=== PATIENT | female | born 1955 | race Caucasian/White ===

== ENCOUNTER → 2022-09-27 15:57 | Outpatient (CLI) | payer MEDICARE, SELFPAY ==
--- NOTE | 2022-09-27 16:01 | DI.MRI.S_ITS ---
PROCEDURE: MR LUMBAR SPINE WO CON INDICATIONS: RADICULOPATHY TECHNIQUE: Noncontrast sagittal T1 spin echo and T2 fast echo, sagittal STIR, and T2 fast spin echo through the lumbar spine. In cases with scoliosis, additional coronal T2 fast spin echo may be performed. COMPARISON: None. FINDINGS: Image quality: Excellent. Alignment and Curvature: There is normal bony alignment. Bone Marrow: Modic type 1 changes at L3-4. No acute vertebral body compression fractures. Spinal Cord: Conus medullaris terminates at the L1-2 level. Visualized cord demonstrates normal signal and size. Paraspinous Soft Tissues: No paravertebral masses. T12-L1: Normal appearance. L1-L2: Disc desiccation and broad-based disc bulge. L2-L3: Disc desiccation and broad-based disc bulge, mild facet hypertrophy and arthrosis. L3-L4: Broad-based disc bulge, disc desiccation, ligamentum flavum hypertrophy and facet hypertrophy with facet arthrosis. This causes mild spinal canal narrowing and minimal left neural foraminal narrowing. L4-L5: Broad-based disc bulge, disc desiccation, ligamentum flavum hypertrophy and facet hypertrophy. Mild bilateral neural foraminal narrowing. L5-S1: Broad-based disc bulge, disc desiccation, questionable tiny annular fissure along the inferior margin. Mild facet hypertrophy. Mild facet arthrosis on the right and left. Moderate left and mild right neural foraminal narrowing. IMPRESSION: Multilevel degenerative disc disease and facet arthrosis, resulting in mostly mild neural foraminal narrowing or spinal canal narrowing. Of note, there is moderate left and mild right neural foraminal narrowing at L5-S1. Dictated by: Levon Arana M.D. on 09/27/2022 at 16:55 Approved by: Levon Arana M.D. on 09/27/2022 at 17:00
== END ==
PROVIDERS: PCP Registered Nurse; Referring Provider Orthopaedic Surgery; Visit Provider Orthopaedic Surgery
DX: M51.16 Intervertebral disc disorders with radiculopathy, lumbar region (principal); M51.17 Intervertebral disc disorders with radiculopathy, lumbosacral region; M47.26 Other spondylosis with radiculopathy, lumbar region; M47.27 Other spondylosis with radiculopathy, lumbosacral region; M48.061 Spinal stenosis, lumbar region without neurogenic claudication; M48.07 Spinal stenosis, lumbosacral region
CPT/HCPCS: 72148

== ENCOUNTER → 2022-11-18 09:55 | Outpatient (CLI) | payer MEDICARE, SELFPAY ==
[2022-11-18 11:04] LABS: Add Manual Diff / Slide Review NO; Basophils Absolute Auto 0 /uL (0-100); Basophils Percent Auto 0.6 % (0-2); Eosinophils Absolute Auto 100 /uL (0-450); Eosinophils Percent Auto 1.1 % (2-4); Hematocrit 36.3 % (36-46); Hemoglobin 13.2 g/dL (12.0-16.0); Lymphocytes Absolute Auto 1400 /uL (1100-4500); Lymphocytes Percent Auto 18.4 % (25-40); Mean Corpuscular HGB Conc 36.4 % (30-36); Mean Corpuscular Hemoglobin 30.7 PG (26-34); Mean Corpuscular Volume 84.5 fL (80-100); Monocytes Absolute Auto 800 /uL (0-900); Monocytes Percent Auto 10.1 % (3-14); Neutrophils Absolute Auto 5400 /uL (1500-7000); Neutrophils Percent Auto 69.8 % (50-75); Platelet Count 321 X10^3/uL (150-400); Red Cell Distribution Width 13.1 % (11.6-14.8); White Blood Cell Count 7.7 X10^3/uL (4.5-11.0)
[2022-11-18 11:24] LABS: BUN Creatinine Ratio 23.4 (6-22); Blood Urea Nitrogen 15 mg/dL (7-17); Calcium 9.3 mg/dL (8.4-10.2); Carbon Dioxide 29 mmol/L (22-32); Chloride 98 mmol/L (98-107); Estimated Glomerular Filt Rate > 60 mL/min (>60); Glucose 94 mg/dL (80-110); HEMOLYSIS < 15 (0-50); Potassium 4.2 mmol/L (3.4-5.1); Sodium 133 mmol/L (137-145)
[2022-11-18 12:03] LABS: Appearance Urine UA CLEAR; Bilirubin Urine UA NEGATIVE (NEGATIVE); Color Urine UA YELLOW; Glucose Urine UA NEGATIVE (Negative); Ketones Urine UA NEGATIVE (NEGATIVE); Leukocyte Esterase Urine UA NEGATIVE (NEGATIVE); Nitrite Urine UA NEGATIVE (Negative); Occult Blood Urine UA NEGATIVE (Negative); Protein Urine UA NEGATIVE (Negative); Specific Gravity Urine UA <=1.005 (1.000-1.035); Urobilinogen Urine UA 0.2 E.U./dL (0.2)
[2022-11-18 12:04] LABS: pH Urine UA 5.5 (4.5-8.0)
[2022-11-18 12:06] LABS: Bacteria Urine None Seen; Culture Indicated Urine Cult Not Indicated; RBC Urine None Seen (0-5/HPF); Squamous Epithelial Cell Urine None Seen (0-5/HPF); Urine Comments Microscopic Normal; WBC Urine None Seen (0-5/HPF)
[2022-11-19 03:12] LABS: x Labcorp Estim. Avg Glu (eAG) 94 mg/dL (.); x Labcorp Hemoglobin A1c 4.9 % (4.8-5.6)
== END ==
PROVIDERS: PCP Registered Nurse; Referring Provider Orthopaedic Surgery; Visit Provider Orthopaedic Surgery
DX: Z01.818 Encounter for other preprocedural examination (principal); R73.9 Hyperglycemia, unspecified; Z01.812 Encounter for preprocedural laboratory examination; N39.0 Urinary tract infection, site not specified
CPT/HCPCS: 36415; 80048; 81001; 83036; 85025; 93005

== ENCOUNTER 2023-01-07 08:22 | Day surgery (SDC) | payer MEDICARE, SELFPAY ==
[2022-12-31 08:37] VITALS: BMI 29.8
[2023-01-07] VITALS (15 sets, daily range): BP systolic 102–140; BP diastolic 47–79; PULSE 74–102; RESP 12–23; TEMP 36.2–37; O2SAT 94–99; BMI 29.8
[2023-01-07] MEDS: LACTATED RINGERS 1,000 ML 42 ML IV ×2 (09:33→12:43)
[2023-01-07] MEDS: VANCOMYCIN 1,000 MG/200 ML PIGGYBACK 200 MG IV (09:45)
--- NOTE | 2023-01-07 10:18 | PM.PREOP ---
Pre-operative Note Interval Note History & Physical reviewed/Exam performed by Physician: Yes Changes to H&P: No
[2023-01-07] MEDS: TRANEXAMIC ACID 1,000 MG VIAL 1000 MG INJ ×2 (11:12→12:43)
[2023-01-07] MEDS: CEFAZOLIN 2 GM/100 ML PREMIX 100 ML IV ×2 (11:20→19:40)
[2023-01-07] MEDS: BUPIVACAINE 0.25% (PF) 60 ML, EPINEPHrine 0.3 MG INJ (11:25)
--- NOTE | 2023-01-07 11:31 | SUR.OPER ---
Patient supine on padded [place] table, one arm on padded arm board at <90, other arm padded and secured with tape across patient's chest, both legs secured in padded traction boots and positioned per surgeon, padded post at patient's groin, pressure points checked and padded.
[2023-01-07] MEDS: BUPIVACAINE LIPOSOME 266 MG/20 ML VIAL INJ (11:43)
--- NOTE | 2023-01-07 12:00 | DI.RAD.S_ITS ---
PROCEDURE: XR HIP W PEL IF DONE LT 2V INDICATIONS: LEFT ANTERIOR HIP LEFT ANTERIOR TECHNIQUE: 2 view(s) of the hip acquired. COMPARISON: None. FINDINGS: Bones: Patient is status post left hip arthroplasty, with hardware components in expected positions. The hip joint appears congruent. The visualized bony structures appear intact. Soft tissues: Overlying postoperative changes are noted. No suspicious soft tissue densities. IMPRESSION: Expected postsurgical change for left hip arthroplasty. Dictated by: Radha Bella MD, PhD on 01/07/2023 at 13:16 Approved by: Radha Bella MD, PhD on 01/07/2023 at 13:16
[2023-01-07] MEDS: SODIUM CHLORIDE IRRIG SOLUTION 250 ML, POVIDONE-IODINE SPONGE STICKS 1 APPLIC IRR (12:45)
--- NOTE | 2023-01-07 12:50 | DI.RAD.S_ITS ---
PROCEDURE: XR HIP W PEL IF DONE LT 2V INDICATIONS: POST OP TOTAL LEFT HIP TECHNIQUE: 2 view(s) of the hip acquired. COMPARISON: [facility], [facility], XR HIP W PEL IF DONE LT 2V, 01/07/2023, 12:08. FINDINGS: Bones: Patient is status post left hip arthroplasty, with hardware components in expected positions. The hip joint appears congruent. The visualized bony structures appear intact. Soft tissues: Overlying postoperative changes are noted. No suspicious soft tissue densities. IMPRESSION: Expected postsurgical change for left hip arthroplasty. Dictated by: Radha Bella MD, PhD on 01/07/2023 at 13:49 Approved by: Radha Bella MD, PhD on 01/07/2023 at 13:49
[2023-01-07] MEDS: OXYCODONE IR 5 MG TABLET PO (13:41)
[2023-01-07] MEDS: CELECOXIB 200 MG CAPSULE PO (13:41)
[2023-01-07] MEDS: hydrOXYzine 50 MG/ML INJ 25 MG IM (13:47)
[2023-01-07] MEDS: ONDANSETRON 4 MG ODT PO (14:44)
[2023-01-07] MEDS: ACETAMINOPHEN 325 MG TABLET 650 MG PO ×2 (14:47→19:40)
[2023-01-07] MEDS: IBUPROFEN 400 MG TABLET PO ×3 (14:48→21:48)
[2023-01-07] MEDS: LACTATED RINGERS 1,000 ML 100 ML IV ×2 (14:50→18:19)
--- NOTE | 2023-01-07 16:35 | PM.OP.1 ---
Operative Date/Time/Diagnoses Date of procedure: 01/07/23 Time of procedure: 11:00 Pre-op diagnosis: Severe left hip OA Post-op diagnosis: same Procedure & Clinicians Procedure: Left total hip arthroplasty anterior approach Same procedure as scheduled: Yes Indications: The patient has had progressively worsening left hip pain with radiographic changes consistent with arthritis. Non-operative management has failed and the patient has requested total hip replacement. The risks, benefits and alternatives to surgery were discussed with the patient prior to proceeding. Risks discussed included, but were not limited to, failure to relieve pain, leg length discrepancy, dislocation, stiffness, infection, nerve damage, deep venous thrombosis, pulmonary embolism, stroke, coma, heart attack, permanent paralysis and , as well as the potential need for eventual revision of the prosthetic. Surgeon: Malika Lopez [employer] Supervisor: Daniel Carbone Anesthesia Type: General and Spinal Operative Notes Findings: Severe left hip osteoarthritis, adequate stability, soft but adequate bone Closure Type: primary Specimen(s): none sent Prosthetic devices, grafts, tissues, transplants, or devices: Lopez and nephew size 48 R3 cup, neutral poly liner, two 6.5 mm screws, size 1 standard offset polar stem with collar, 32 x +0 Oxinium head, Estimated Blood Loss (mL): 250 Blood products transfused: none Procedure in detail: The patient was brought to the operating room. Patient was carefully positioned in the supine position. Time-out was performed and antibiotics were given. Anesthesia was induced. She was positioned in the on the table in order to allow hyperextension of the hip. The left lower extremity was prepped and draped in a standard sterile fashion. An anterior left hip incision was made 1 fingerbreadth lateral to the anterior superior iliac spine and extended distally towards the greater trochanter. Dissection was carried out through skin and subcutaneous tissues. Superficial hemostasis was achieved. The fascia over the tensor fascia tasha was defined and incised with a knife. Two Allis clamps were used to grasp the fascia. Tensor fascia tasha was retracted laterally. A gelpi retractor was placed. Dissection was carried out down along the neck. The circumflex vessels were carefully identified and cauterized with the Aqua Mantis. A PA was used during the procedure and was essential for intraoperative retraction and adequate positioning of the patient. They were very helpful with establishing visualization for hemostasis. There was good visualization of the femoral neck. A Cobra was placed superior to the neck and the gluteus fibers were carefully stripped from that superior aspect of the capsule. A 2nd retractor was placed along the inferior aspect of the neck. The rectus insertion along the capsule was partially released. A 3rd retractor that was then gently placed over the rim of the acetabulum under the rectus. Capsule was carefully incised and released from the intertrochanteric line circumferentially superior to the mid sagittal line and inferiorly to the mid sagittal line until the lesser trochanter was palpable. A tag stitch was placed both in the superior and inferior limb of the capsular insertion. Along the acetabulum capsule was also released up to the mid sagittal 12:00 position. A portion of the labrum was resected. A saw was used to perform an osteotomy at the level of the intertrochanteric line and the junction of the superior femoral neck leaving approximately 1 finger breath of residual inferior neck above the lesser trochanter. A 2nd cut was made along the femoral neck at the base of the head and a napkin ring of neck was removed. Corkscrew was placed in the femoral head and the head was removed without difficulty. Retractors were then repositioned around the acetabulum. Residual labrum was resected and additional osteophytes were removed. A reamer that was 4 mm below the templated size was placed by hand in the acetabulum and it was reamed to centralize the acetabulum. It was then reamed up to 2 under the templated size and fluoroscopy was brought in to confirm the position of the reaming and depth of reaming. I reamed 1 under the anticipated size. A trial cup was placed and noted that it was appropriately sized and fluoroscopy confirmed position and depth. The component was open and inserted without difficulty fluoroscopic imaging was used to confirm that the cup had been adequately seated and was well positioned. It was further stabilized with 2 screws. She had fairly soft bone. Neutral poly liner was placed. The cup was tested and noted to be stable. Attention was then directed to the femur. The femur was gently hyperextended additional capsular release was performed as needed in order to allow adequate visualization of the proximal femur with elevation of the femur. Patient was placed in a hyperextended slightly adducted position with maximum external rotation. Box osteotome was used to check for any residual neck as well as sclerotic bone along the trochanter. [place] pepper was placed in the femur. Additional broaching was performed. Canal finder was used to determine the alignment of the canal and position. Size 0-1 broach was placed. The canal was then appropriately broached up to the templated size as long as there was adequate stability of the broach and serial advancement of the broach without excessive impingement. Specific attention was directed at avoiding varus attempting to direct the distal aspect of the broach more anteriorly and avoiding excessive anteversion. Trial reduction showed acceptable range of motion, good stability, no posterior impingement, latter day of leg length and appropriate lateral shuck. I also hyperflexed the hip and checked that there was no impingement anteriorly and there was good stability with flexion, adduction and internal rotation. Marcaine and Exparel were injected. The stem was placed without difficulty. Repeat trial reduction and x-ray showed acceptable overall position, length, and no evidence of the femoral fracture. Final head was placed. Wound was meticulously irrigated with normal saline. The hip was reduced and additional Exparel and Marcaine were injected. The capsule was closed with interrupted nonabsorbable sutures. The fascia of the tensor was closed with interrupted and running Vicryl. No drain was placed. Any tensor fascia tasha muscle that appeared to be contused or injured which was a minimal amount was carefully resected. Capsule around the tensor was injected with Exparel and Marcaine. The skin was closed with barbed stitches for the subcutaneous tissue and skin. We also used surgical glue. The wound was dressed sterilely. Brief Betadine soak was also used and was meticulously irrigated with normal saline. Patient was transferred to recovery room in satisfactory condition. Complications: none Post-operative Condition: stable Disposition: Acute Care Plan for aftercare: The patient will be maintained on a standard total hip replacement protocol with weight bearing as tolerated and anterior hip precautions. The patient will receive Aspirin and sequential compression devices for DVT prophylaxis. The patient will be discharged home when safe for the home environment.
--- NOTE | 2023-01-07 17:30 | PT.IIE ---
Current Diagnoses Unilateral primary osteoarthritis, left hip (01/07/23) Surgery Performed Operation Date: 01/07/23 10:45 Actual Procedures p Total Hip Arthroplasty/Anterior Approach(Left) - Malika Lopez MD Surgical History (Last Updated 12/31/22 @ 09:05 by Alfa Azar, SERENITY) History of 3 sections History of arthroscopic knee surgery History of eye surgery History of lumpectomy of left breast History of tubal ligation Hx of cholecystectomy Medical History (Last Updated 12/31/22 @ 08:41 by Alfa Azar RN) Depression DJD (degenerative joint disease) Hyperlipidemia Physical Therapy Inpatient Evaluation/Re-Eval M1 PT/OT-IP Prior Functional Status Start: 01/07/23 17:36 Freq: NEEDED Status: Active Protocol: Document 01/07/23 17:36 AB (Rec: 01/07/23 17:50 AB [id number]) Medical Review Prior Functional Status Medical History Reviewed Yes Communication Pt able to communicate needs. Mobility and Gait Pt ambulated without AD at [facility]. Activities of Daily Living and IADL's IND with all ADLs and IADLs, but was limited by hip pain Social History Household Members spouse Living Arrangements House Number of Floors (Floors) Two Floors Number of Stairs To Enter/Railing? 3 MARZENA with bilat hand rails Home Environment Standard Height Toilet,Walk in Shower Home Equipment Front Wheel Walker,Four Wheel Walker,Straight Cane,Raised Toilet Seat w/Armrests,Shower Seat with Backrest,Hand Held Shower,Leg Area Manager,Long Handled Shoe Horn,Drafter Civil,Sock Aid, Grab Bars In Shower Additional Social History Comment Pt reports her home is 2 levels and bedroom and full bath are upstairs. However she will be staying in guest house which is 1 level and has 3 MARZENA with bilat hand rails. is able to assist 24/7 if needed. M2 PT-IP Current Condition Start: 01/07/23 17:36 Freq: NEEDED Status: Active Protocol: Document 01/07/23 17:36 AB (Rec: 01/07/23 17:50 AB [id number]) Physical Therapy Current Condition Current Condition Evaluation Date 01/07/23 Treatment Diagnosis s/p left anterior YISEL Onset Date 01/07/23 M3 PT-IP Subjective Start: 01/07/23 17:36 Freq: NEEDED Status: Active Protocol: Document 01/07/23 17:36 AB (Rec: 01/07/23 17:50 AB [id number]) Subjective Physical Therapy Visit Type Type Initial Evaluation Visit Start Time 16:30 Visit Stop Time 17:30 Total Visit Minutes 60 Physical Therapy Visit Comments Patient Comments Pt presents semi supine in bed and is agreeable to PT eval this afternoon. She reports some numbness in buttocks but denies pain. Therapy Pain Assessment Pain Present Pain Present Denied Pain M4 PT-IP Mobility and Gait Start: 01/07/23 17:36 Freq: NEEDED Status: Active Protocol: Document 01/07/23 17:36 AB (Rec: 01/07/23 17:50 AB [id number]) PT-Bed Mobility Assessment Rolling Type of Rolling Bilateral Level of Assist Standby Assistance Supine to Sit Supine to Sit Standby Assistance Sit to Supine Sit to Supine Standby Assistance Scooting Scooting to Edge of Bed Standby Assistance PT-Transfer Assessment Sit to and From Stand Sit to and from Stand Standby Assistance,Use of Upper Extremities Equipment Transfer Assistive Device Gait Belt,Front Wheeled Walker Transfers Transfer Destination Bed,Chair Transfer Technique Stand Step Pivot Transfer Ability Level of Assist Standby Assistance,Use of Upper Extremities Comments Mobility Comments Pt is able to perform bed mobility with SBA, while maintaining hip precautions. She also performs STS and transfers with good mechanics, though verbal cues are required for sequencing and proper use of FWW. Pt demonstrates good stability in standing and has good carryover of education for subsequent transfers. After ambulation and stairs, pt is left sitting in bed with all needs met, tray in reach, call light in reach, and in room. RN was notified of findings. Gait Assessment Gait Gait Assistance Required: Standby Assistance Distance (Feet) 200 Assistive Devices Assistive Device Gait Belt,Front Wheeled Walker Gait Deviations General Gait Pattern Antalgic,Decreased Stride Length,Decreased Feet Clearance,Step-to Gait Factors Limiting Gait Function Factors Limiting Gait Function Decreased Strength,Limited Range of Motion Comments Gait Comments Gait deviations are consistent with surgical procedure. Pt denied pain with ambulation, but reports fatigue towards end of bout of ambulation. Pt also demonstrates good mechanics for turning to avoid pivoting, and step to gait to limit hip hyperextension. She ambulates cautiously with slow bre. Stair Climbing Assessment Evaluation Level of Assist On Stairs Standby Assistance Devices Stair Climbing Assistive Devices Left Railing,Right Railing Technique/Endurance Stair Climbing Direction Ascend and Descend Stair Climbing Technique Step to Step Number of Steps Climbed 3 Query Text: Stair Climbing Set # Repetitions (reps) 1 Comments Stair Climbing Comments Pt was educated on ascending with nonsurgical RLE, and descending with surgical LLE. PT-Balance Assessment Sitting Balance and Reactions Static Sitting Balance Ability Normal Dynamic Sitting Balance Ability Normal Standing Balance and Reactions Static Standing Balance Ability Normal Dynamic Standing Balance Ability Good Device Used FWW M5 PT-IP Objective Assessments Start: 01/07/23 17:36 Freq: NEEDED Status: Active Protocol: Document 01/07/23 17:36 AB (Rec: 01/07/23 17:50 AB [id number]) Orientation Orientation/Cognition Level of Alertness Alert Orientation Name,Age,Birthday,Month,Date, Year,Day of Week,Place, Situation Language Function Ability No Deficits Noted Safety Awareness Understands Safety Issues Memory Description No Deficits Noted Gross Range of Motion Upper Extremity ROM Assessment Within Functional Limits Lower Extremity ROM Assessment Left Impaired Strength Upper Extremity Strength Assessment Within Functional Limits Lower Extremity Strength Assessment Left Impaired M6 PT-IP Treatment Start: 01/07/23 17:36 Freq: NEEDED Status: Active Protocol: Document 01/07/23 17:36 AB (Rec: 01/07/23 17:50 AB [id number]) Physical Therapy Treatment Education Education Provided Precautions,Weight Bearing Status,Post-Op Packet,Safety Brace Education Patient,Caregiver M7 PT-IP Assessment and Plan Start: 01/07/23 17:36 Freq: NEEDED Status: Active Protocol: Document 01/07/23 17:36 AB (Rec: 01/07/23 17:50 AB [id number]) PT Summary Assessment and Plan Potential Rehabilitation Potential Excellent Status of Condition at Evaluation Stable Summary Impairments Pain,ROM,Strength,Balance,Bed Mobility,Transfers,Gait, Activity Tolerance Assessment Summary Rosio Paul is a 67 year old female patient who is s/p left anterior YISEL performed on 01/07/23. Today's PT evaluation revealed signs and symptoms consistent with this procedure including ROM deficits and weakness. Currently, the pt is able to perform all functional mobility with SBA, including transferring with FWW, ambulating 200ft with FWW and ascending/descending 3 steps with bilateral hand rails. She demonstrates good carryover and understanding of education provided throughout session. Based on her current level of function, the pt would benefit from skilled PT until she is discharged to improve to her highest level of function. PT currently recommends discharge to home with assistance and referral to outpatient PT to improve to her PLOF and increase post surgical outcomes. Goals Bed Mobility Goal Independent Transfer Goal Independent,Front Wheeled Walker Gait Goal Independent,Front Wheel Walker Gait Distance 300 Other Goals Pt to ambulate 300ft with independence and LRAD to demonstrate improving strength and tolerance to activity. Pt to ascend/descend 3 steps with bilateral hand rails independently to show improving LE strength. Days to Meet Goals 5 Frequency of Treatment Frequency Of Treatment Twice a Day Treatment Plan Physical Therapy Treatment Plan Bed Mobility Training,Transfer Training,Gait Training, Therapeutic Exercise,Balance Retraining,Post Op Education, Discharge Planning,Hot or Cold Pack,Neuromuscular Re-ed, Coordination Retraining,Manual Therapy Precautions Anterior Hip Precautions No Hip Extension,No Hip External Rotation Weight Bearing Status Weight Bearing Status Weight Bear as Tolerated Recommendations To Nursing Amount of Assist Needed Standby Assistance Discharge Recommendations PT Discharge Recommendations Home with Assistance, Outpatient PT Transportation Needs at Discharge Private Vehicle
--- NOTE | 2023-01-07 18:49 | PC.NURSE ---
Day shift: Pt admitted to floor from PACU at 1415. A&Ox4. VSS. Pt on room air. Patient rating pain 4/10, had 5mg PO oxycodone in PACU 1 hour prior. Gave patient APAP and ibuprofen with adequate relief. L hip dressing CDI, covered with aquacel dressing. Pt reports numbness on BLE when arrived to the floor, has since worn off. Pt reported mild pins and needles to L hand. MD Lopez at bedside and stated it was likely positional during surgery and should go away. CMS + BLEs. Pt OOB with FWW and gait belt + SBA. Pt OOB to BR, voiding in toilet. Tolerating general diet. LR @ 100mL/hr. Will continue to monitor.
[2023-01-07] MEDS: ASPIRIN EC 81 MG TABLET PO (20:12)
[2023-01-07] MEDS: DOCUSATE 100 MG CAPSULE PO (20:12)
--- NOTE | 2023-01-07 23:12 | PC.NURSE ---
Patient is alert and oriented. Breath sounds CTA with RA sat of 97%; denied sore throat but stated it is scratchy HRR. Denied nausea. BT present and states she believes she has passed some flatus since return from surgery. Is voiding on toilet and denies dysuria. Is able to move herself in bed and provided SBA when up to bathroom with walker. Aquacel dressing to left anterior hip is CDI. CMS intact bilaterally although does have some weakness and decreased ROM in left LE. Bilateral calf SCD's applied after back in bed (was sitting up in chair at shift change). Denied pain but has been using ice pack intermittently to left hip. Fall risk score is moderate but calls appropriately when wanting to get out of bed so alarm not in use at this time.
[2023-01-08] MEDS: ACETAMINOPHEN 325 MG TABLET 650 MG PO ×2 (01:50→08:51)
[2023-01-08] MEDS: IBUPROFEN 400 MG TABLET PO ×3 (01:50→11:02)
[2023-01-08 01:53] VITALS: BP 117/61; PULSE 78; RESP 15; TEMP 36.4; O2SAT 98
[2023-01-08] MEDS: CEFAZOLIN 2 GM/100 ML PREMIX 100 ML IV (03:22)
[2023-01-08 06:35] LABS: Hematocrit 29.9 % (36-46); Hemoglobin 10.6 g/dL (12.0-16.0)
--- NOTE | 2023-01-08 08:13 | PM.DS.1 ---
History of Present Illness History of Present Illness Date Patient Seen: 01/08/23 Time Patient Seen: 08:13 Chief complaint: Left YISEL *OPB* Narrative: Operative Date/Time/Diagnoses Date of procedure: 01/07/23 Time of procedure: 11:00 Pre-op diagnosis: Severe left hip OA Post-op diagnosis: same Procedure & Clinicians Procedure: Left total hip arthroplasty anterior approach Same procedure as scheduled: Yes Indications: The patient has had progressively worsening left hip pain with radiographic changes consistent with arthritis. Non-operative management has failed and the patient has requested total hip replacement. The risks, benefits and alternatives to surgery were discussed with the patient prior to proceeding. Risks discussed included, but were not limited to, failure to relieve pain, leg length discrepancy, dislocation, stiffness, infection, nerve damage, deep venous thrombosis, pulmonary embolism, stroke, coma, heart attack, permanent paralysis and , as well as the potential need for eventual revision of the prosthetic. Surgeon: Malika Lopez Tie In Machine Operator: Daniel Carbone Anesthesia Type: General and Spinal Operative Notes Findings: Severe left hip osteoarthritis, adequate stability, soft but adequate bone Closure Type: primary Specimen(s): none sent Prosthetic devices, grafts, tissues, transplants, or devices: Lopez and nephew size 48 R3 cup, neutral poly liner, two 6.5 mm screws, size 1 standard offset polar stem with collar, 32 x +0 Oxinium head, Estimated Blood Loss (mL): 250 Blood products transfused: none Discharge Providers Provider Discharge Date: 01/08/23 Primary care physician: NANCY Davis Consults: 12/20/22 12:37 Consult to Anesthesiology Routine Comment: Consulting Provider: Anesthesiologist Reason for consultation: Regional block for post operative pain control 01/07/23 10:19 Consult to Anesthesiology Routine Comment: Consulting Provider: Anesthesiologist Reason for consultation: Regional block for post operative pain control 01/07/23 14:17 Consult to Discharge Planning Routine Comment: Consult to Occupational Therapy Evaluate & Treat Comment: Physician Instructions: Evaluate and treat Consult to Physical Therapy Evaluate & Treat Comment: Physician Instructions: post op YISEL protocol Discharge provider: Hortencia Calabrese PA-C Summary Hospital Course Discharge Diagnosis: Severe left hip osteoarthritis, s/p left total hip arthroplasty Hospital Course: Ms Paul's hospital course was unremarkable. On the morning of POD# 1 she was feeling well and wanted to go home. She was eating and voiding without difficulty and said she 'passed PT with flying colors.' Her pain was well-controlled with oral medication. Exam Vital Signs (past 8 hours): - 01/08/23 01:53 Temperature 97.5 F L Pulse Rate 78 Respiratory Rate 15 Blood Pressure 117/61 Pulse Oximetry 98 Oxygen Flow Rate 0 Oxygen Delivery Method Room Air Oxygen Flow Rate 0 Narrative Exam Narrative: 5/5 strength in hip flexors, quadriceps, hamstrings, DF, PF, EHL on left. Sensation to light touch intact throughout LLE. Calf soft, compressible, nontender. Aquacel dressing CDI. Objective Labs 01/08/23 05:30 Labs: Laboratory Results - last 24 hr 01/08/23 05:30 Hgb 10.6 L Hct 29.9 L PFSH Medical History (Updated 12/31/22 @ 08:41 by Alfa Azar RN) DJD (degenerative joint disease) Hyperlipidemia Depression Surgical History (Updated 12/31/22 @ 09:05 by Alfa Azar RN) History of eye surgery History of arthroscopic knee surgery History of lumpectomy of left breast History of 3 sections History of tubal ligation Hx of cholecystectomy Social History household members: spouse Smoking Status: Never smoker alcohol intake: current Discharge Assessment & Plan Assessment and Plan Assessment: Severe left hip osteoarthritis, s/p left total hip arthroplasty Plan of Treatment: Discharge home, outpt PT, ASA 81mg BID for VTE prophylaxis, follow up in office in 2 weeks as scheduled. Pt has meds for discharge. Discharge Plan Discharge Plan Patient Disposition: Home Discharge orders & Medications Discharge Orders: Discharge (Order); Ordered 01/08/23 Ordered By: Hortencia Calabrese Prescriptions: Continued acyclovir 400 mg tablet 400 mg PO BID PRN (Reason: herpes) acetaminophen 500 mg Tablet 500 mg PO Q6H PRN (Reason: Pain (Scale Score 1-3)) Follow up/Referrals: Verónica Subramanian FNP-C [Primary Care Provider] - Malika Lopez MD [Physician] - As previously scheduled (Follow up with Dr Lopez on 01/22/2023 @ 2:[address] office in [place].) Diet/Activity/Treatments Diet: Diet as Tolerated Activity: Weightbearing as tolerated to left leg. Anterior hip precautions. Cold/Heat Therapy: Ice to hip as needed for pain. Skin/Wound/Dressing Care Report to your healthcare provider any signs of infection, such as:: chills, fever, night sweats, unusual drainage and unusual redness Dressing: May shower. Leave Aquacel dressing in place until follow up in office. No bathing or otherwise soaking incision. Call the office if the dressing becomes saturated inside. Visit Report/Discharge Packet Instructions: DI for Hip Replacement, DI for Prescription Opioid Use Stand Alone Forms: Patient Portal/API, Surgery Discharge Discharge Data Primary Care Provider: Verónica Subramanian Attending Provider: Malika Lopez
[2023-01-08] MEDS: SODIUM CHLORIDE 0.9% FLUSH 10 ML IV (08:47)
[2023-01-08] MEDS: ASPIRIN EC 81 MG TABLET PO (08:47)
[2023-01-08] MEDS: DOCUSATE 100 MG CAPSULE PO (08:51)
--- NOTE | 2023-01-08 09:03 | OT.IP.EVAL ---
Current Diagnoses Unilateral primary osteoarthritis, left hip (01/07/23) Surgery Performed Operation Date: 01/07/23 10:45 Actual Procedures p Total Hip Arthroplasty/Anterior Approach(Left) - Malika Lopez MD Past Medical History (Last Updated 12/31/22 @ 08:41 by Alfa Azar, SERENITY) Depression DJD (degenerative joint disease) Hyperlipidemia Surgical History (Last Updated 12/31/22 @ 09:05 by Alfa Azar RN) History of 3 sections History of arthroscopic knee surgery History of eye surgery History of lumpectomy of left breast History of tubal ligation Hx of cholecystectomy Occupational Therapy Inpatient Evaluation/Re-Eval M1 PT/OT-IP Prior Functional Status Start: 01/08/23 09:13 Freq: NEEDED Status: Active Protocol: Document 01/08/23 08:35 [facility] (Rec: 01/08/23 09:25 [facility] [id number]) Medical Review Prior Functional Status Medical History Reviewed Yes Communication Pt able to communicate needs. Mobility and Gait Pt ambulated without AD at [facility]. Activities of Daily Living and IADL's IND with all ADLs and IADLs, but was limited by hip pain Social History Household Members spouse Living Arrangements House Number of Floors (Floors) Two Floors Number of Stairs To Enter/Railing? 3 MARZENA with bilat hand rails Home Environment Standard Height Toilet,Walk in Shower Home Equipment Front Wheel Walker,Four Wheel Walker,Straight Cane,Raised Toilet Seat w/Armrests,Shower Seat with Backrest,Hand Held Shower,Leg Box Spring Frame Builder,Long Handled Shoe Horn,Motor Patrol Operator,Sock Aid, Grab Bars In Shower Additional Social History Comment Pt reports her home is 2 levels and bedroom and full bath are upstairs. However she will be staying in guest house which is 1 level and has 3 MARZENA with bilat hand rails. is able to assist 24/7 if needed. M2 OT-IP Current Condition Start: 01/08/23 09:13 Freq: Status: Active Protocol: Document 01/08/23 08:35 [facility] (Rec: 01/08/23 09:25 [facility] [id number]) Occupational Therapy Current Condition Current Condition Evaluation Date 01/08/23 Treatment Diagnosis S/P L YISEL anterior approach Diagnosis Onset Date 01/07/23 Post Operative Precautions Anterior Hip Precautions No Hip Extension,No Hip External Rotation M3 OT- IP Subjective and Pain Start: 01/08/23 09:13 Freq: Status: Active Protocol: Document 01/08/23 08:35 [facility] (Rec: 01/08/23 09:25 [facility] [id number]) OT- Subjective Occupational Therapy Visit Type Type Initial Evaluation Visit Start Time 08:35 Visit Stop Time 09:03 Total Visit Minutes 28 Occupational Therapy Visit Comments Patient Comments Pt in the bathroom and agreed to get dressed. Patient/Caregiver Goals To go home. OT Pain Assessment Pain When Pain Assessed During Mobility Pain Present Pain Present Pain Reported Location Left Hip Intensity 1 Scale Used Numeric (0 - 10) M4 OT- IP ADL's Start: 01/08/23 09:13 Freq: Status: Active Protocol: Document 01/08/23 08:35 [facility] (Rec: 01/08/23 09:25 [facility] [id number]) OT [id number] General Evaluation Self-Feeding Ability Independent OT ADL-Grooming General Evaluation Grooming Ability Independent OT ADL-Oral Care General Eval Oral Care Ability Independent Comments Oral Care Comments While standing with FWW in front of the sink. OT ADL-Dressing General Eval Upper Body Dressing Ability Independent Lower Body Dressing Ability Standby Assistance,Minimal Assistance Comments OT Dressing Comments Pt instructed to sit for LB dressing needs and to be sure not to externally rotate her LLE for dressing needs. Educated best to dress the LLE first and take out last. Pt able to use the automobile sales consultant to assist with dressing needs. Pt states her can assist her at home. Pt will need assist with her left sock at this time. OT ADL-Toileting General Evaluation Toileting Ability Independent OT ADL-Bathing Comments OT Bathing Comments Pt states to shower at home. M5 OT- IP IADL's Start: 01/08/23 09:13 Freq: Status: Active Protocol: Document 01/08/23 08:35 [facility] (Rec: 01/08/23 09:25 [facility] [id number]) OT-Instrumental Activities of Daily Living Home Safety Awareness Awareness of Need for Assistance at Home Good Awareness Ability to Problem Solve Emergency Able to Problem Solve Situations Home Safety Comments Pt's to assist. Medication Management Medication Management No Deficits Identified Money Management Money Management No Deficits Identified Meal Preparation Meal Preparation Comments Pt's husabnd to assist. Concrete Mixer Operator Helper Concrete Mixer Operator Helper Comments Pt's to assist. M6 OT- IP Functional Cognition Start: 01/08/23 09:13 Freq: Status: Active Protocol: Document 01/08/23 08:35 [facility] (Rec: 01/08/23 09:25 [facility] [id number]) Cognitive Factors Limiting Selfcare Function Cognitive Ability Level of Alertness Alert Patient Orientation Name,Age,Birthday,Month,Date, Year,Day of Week,Place, Situation Attention Span Ability Capable of Focused Attention, Capable of Sustained Attention Ability to Follow Commands Able to Follow Multi-Step Commands Memory Description No Deficits Noted Safety Awareness Decreased Ability to Apply Precautions Problem Solving Ability No deficits Noted Cognitive Comments Cognitive Assessment Comments Pt needing reminders to take smaller steps in order to best follow her hip precautions. Also able to educate regarding car transfers in which leg goes back first as pt will have a step to get into the truck. OT- Vision and Hearing OT- Hearing Assessment OT- Hearing Assessment WFL OT- Vision Assessment Visual Acuity WFL M7 OT- IP Mobility and Balance Start: 01/08/23 09:13 Freq: Status: Active Protocol: Document 01/08/23 08:35 [facility] (Rec: 01/08/23 09:25 [facility] [id number]) OT-Transfer Assessment Sit to and From Stand Sit to and from Stand Independent Transfers Transfer Ability Independent Technique Transfer Destination Chair,Toilet Transfer Technique Stand Step Pivot Devices Transfer Assistive Devices None,Front Wheeled Walker Comments Mobility Comments Pt independent in the room mainly just needing reminders to follow her hip precautions of taking smaller steps. OT- Balance Assessment Sitting Balance and Reactions Static Sitting Balance Ability Normal Dynamic Sitting Balance Ability Normal Standing Balance and Reactions Static Standing Balance Ability Normal Dynamic Standing Balance Ability Good M8 OT- IP Objective Assessments Start: 01/08/23 09:13 Freq: Status: Active Protocol: Document 01/08/23 08:35 [facility] (Rec: 01/08/23 09:25 [facility] [id number]) OT Gross Range of Motion Upper Extremity Range of Motion Assessment Within Functional Limits OT Strength Upper Extremity Strength Assessment Within Functional Limits OT-Muscle Tone Assessment Muscle Tone WNL Yes M9 OT- IP Assessment and Plan Start: 01/08/23 09:13 Freq: Status: Active Protocol: Document 01/08/23 08:35 [facility] (Rec: 01/08/23 09:25 [facility] [id number]) OT Summary Assessment and Plan Potential Rehabilitation Potential Excellent Analytic Complexity at Evaluation Low Summary OT Impairments Pain,Functional Mobility, Dressing,Bathing Progress Towards Goals Progressing Toward Goals Assessment Summary Pt low complexity and main barriers is needing reminders to slow down and take smaller steps. Pt has a supportive at home to assist with her needs. Pt to go home with assist and outpt PT. Goals Dressing Goal Independent Bathing Goal Independent Days to Meet Goals 2 Frequency of Treatment Frequency Of Treatment Once a Day Treatment Plan OT Treatment Plan ADL Training,Functional Mobility,Patient/Family Education,Discharge Planning Discharge Recommendations OT Discharge Recommendations Home with Assistance, Outpatient PT Transportation Needs at Discharge Private Vehicle
--- NOTE | 2023-01-08 09:40 | PT.IPTN ---
Current Diagnoses Unilateral primary osteoarthritis, left hip (01/07/23) Surgery Performed Operation Date: 01/07/23 10:45 Actual Procedures p Total Hip Arthroplasty/Anterior Approach(Left) - Malika Lopez MD Physical Therapy Treatment Note M2 PT-IP Current Condition Start: 01/07/23 17:36 Freq: NEEDED Status: Discharge Protocol: Document 01/07/23 17:36 AB (Rec: 01/07/23 17:50 AB [id number]) Physical Therapy Current Condition Current Condition Evaluation Date 01/07/23 Treatment Diagnosis s/p left anterior YISEL Onset Date 01/07/23 M3 PT-IP Subjective Start: 01/07/23 17:36 Freq: NEEDED Status: Discharge Protocol: Document 01/08/23 09:40 AB(2) (Rec: 01/08/23 14:38 AB(2) [id number]) Subjective Physical Therapy Visit Type Type Treatment Note Visit Start Time 09:40 Visit Stop Time 10:20 Total Visit Minutes 40 Number of ULTRASONIC TESTER Visits 0 Physical Therapy Visit Comments Patient Comments agreeable to do PT Therapy Pain Assessment Pain When Pain Assessed At Rest Pain Present Pain Present Pain Reported Location Left Hip Intensity 1 M4 PT-IP Mobility and Gait Start: 01/07/23 17:36 Freq: NEEDED Status: Discharge Protocol: Document 01/08/23 09:40 AB(2) (Rec: 01/08/23 14:38 AB(2) [id number]) PT-Bed Mobility Assessment Supine to Sit Supine to Sit Standby Assistance Sit to Supine Sit to Supine Standby Assistance PT-Transfer Assessment Equipment Transfer Assistive Device Gait Belt,Front Wheeled Walker Orthotic/Prosthetic Devices or Brace: No Transfers Transfer Destination Chair Transfer Technique ambulated Transfer Ability Level of Assist Standby Assistance Comments Mobility Comments pt sitting on the chair and agreeable to do PT. reviewed hip precautions and pt able to recall 1/2. educated pt regarding hip precautions again. completed sit to stand and step transfer to bed using FWW SBA. demonstrated bed mobility sit<>supine SBA. pt agreed to do stairs. completed sit to stand SBA and ambulated towards the stairs using FWW SBA. occasional cues provided for hip precautions. pt completed up/down steps using B rails SBA. ambulated back to her room using fWW and sat back on chair. positioned on the chair. call light and table placed within reach. pt stated that no caregiver training is needed and can instruct spouse for assistance . Gait Assessment Gait Gait Assistance Required: Standby Assistance Distance (Feet) 150 Able to Maintain Weight Bearing Status Yes During Gait Assistive Devices Assistive Device Gait Belt,Front Wheeled Walker Orthotic/Prosthetic Devices or Brace: No Factors Limiting Gait Function Factors Limiting Gait Function Decreased Activity Tolerance, Decreased Strength,Pain,Poor Balance,Poor Safety Awareness Stair Climbing Assessment Evaluation Level of Assist On Stairs Standby Assistance Devices Stair Climbing Assistive Devices Left Railing,Right Railing Technique/Endurance Stair Climbing Direction Ascend and Descend Stair Climbing Technique Step to Step Number of Steps Climbed 3 Stair Climbing Set # Repetitions (reps) 1 M5 PT-IP Objective Assessments Start: 01/07/23 17:36 Freq: NEEDED Status: Discharge Protocol: Document 01/07/23 17:36 AB (Rec: 01/07/23 17:50 AB [id number]) Orientation Orientation/Cognition Level of Alertness Alert Orientation Name,Age,Birthday,Month,Date, Year,Day of Week,Place, Situation Language Function Ability No Deficits Noted Safety Awareness Understands Safety Issues Memory Description No Deficits Noted Gross Range of Motion Upper Extremity ROM Assessment Within Functional Limits Lower Extremity ROM Assessment Left Impaired Strength Upper Extremity Strength Assessment Within Functional Limits Lower Extremity Strength Assessment Left Impaired M6 PT-IP Treatment Start: 01/07/23 17:36 Freq: NEEDED Status: Discharge Protocol: Document 01/08/23 09:40 AB(2) (Rec: 01/08/23 14:38 AB(2) [id number]) Physical Therapy Treatment Education Education Provided Precautions,Weight Bearing Status,Safety M7 PT-IP Assessment and Plan Start: 01/07/23 17:36 Freq: NEEDED Status: Discharge Protocol: Document 01/08/23 09:40 AB(2) (Rec: 01/08/23 14:38 AB(2) [id number]) PT Summary Assessment and Plan Potential Rehabilitation Potential Good Summary Impairments Pain,ROM,Strength,Balance, Coordination,Sensation,Tone, Cognition,Bed Mobility, Transfers,Gait,Activity Tolerance Assessment Summary pt requiring SBA with mobility using FWW and plans to go home with spouse to assist. pt has outpt PT set up. pt may go home when medically stable. Goals Bed Mobility Goal Independent Transfer Goal Independent,Front Wheeled Walker Gait Goal Independent,Front Wheel Walker Gait Distance 300 Other Goals Pt to ambulate 300ft with independence and LRAD to demonstrate improving strength and tolerance to activity. Pt to ascend/descend 3 steps with bilateral hand rails independently to show improving LE strength. Days to Meet Goals 5 Frequency of Treatment Frequency Of Treatment Twice a Day Treatment Plan Physical Therapy Treatment Plan Bed Mobility Training,Transfer Training,Gait Training, Therapeutic Exercise,Balance Retraining,Post Op Education, Discharge Planning,Hot or Cold Pack,Neuromuscular Re-ed, Coordination Retraining,Manual Therapy Precautions Anterior Hip Precautions No Hip Extension,No Hip External Rotation Weight Bearing Status Weight Bearing Status Weight Bear as Tolerated Allowed Weight Bearing Amount (enter % LLE WBAT or #) (%) Recommendations To Nursing Amount of Assist Needed Standby Assistance Discharge Recommendations PT Discharge Recommendations Home with Assistance, Outpatient PT Transportation Needs at Discharge Private Vehicle
[2023-01-08 10:18] VITALS: BP 134/70; PULSE 88; RESP 16; TEMP 36.9; O2SAT 94
--- NOTE | 2023-01-08 11:24 | CM.DANOTE ---
Initial DCP Assessment Note Pt is a 67 yo female, resident of [facility]. Patient is now POD#1 from left YISEL by Dr Lopez PCP: Verónica Subramanian Payer: RENNY/JACLYN Reviewed chart, pt discussed in multidisciplinary rounds this morning. Therapy has cleared pt for return home w/family to assist and pt has planned for home, DC order from Ortho has already been initiated this morning. No barriers identified at this time to patient's safe discharge home w/family to assist; close outpatient f/u recommended. CM team will plan to follow closely in case any DC needs or concerns arise. PRAMOD Acevedo Discharge Planning/Care Management CM Discharge Assessment Start: 01/08/23 11:20 Freq: Status: Active Protocol: Document 01/08/23 11:20 [facility] (Rec: 01/08/23 11:24 [facility] [id number]) Discharge Planning Assessment Assigned De Icer Installer PRAMOD Kimball DPOA/Assigned Designee Name Miguel Paul, spouse Contact Information [phone] Advance Directives? Yes Advance Directives on File Yes History Provided By Patient Prior Living Arrangements House Household Members spouse Type of transporation used prior to Drives own vehicle admit Independent with ADL's Yes Is patient alert and oriented? Yes Needs Assistance With Home Chores / Shopping Comment Patient's activity has been limited by hip pain Patient/Family Preference OP PT Therapy Barriers to Discharge No Discharge Plan Home Transportation Arrangement Spouse Referrals Initiated None needed Whiteboard Updated in Patient Room with Yes name and ext. # of De Icer Installer Comment DOD 01/08/23
== END 2023-01-08 12:05 | disposition home or self-care (01) ==
LOC: OR 08:28 → AC 08:28
PROVIDERS: PCP Registered Nurse; Referring Provider Orthopaedic Surgery; Visit Provider Orthopaedic Surgery
PROC: (CPT 27130; principal; 2023-01-07 10:45)
DX: M16.12 Unilateral primary osteoarthritis, left hip (principal)
CPT/HCPCS: 27130; 36415; 73502; 85014; 85018; 97116; 97161; 97165; 97530; 97535; C1776; C9290; J0171; J0690; J1100; J2405; J2704; J3010; J3410

== ENCOUNTER → 2023-07-23 15:47 | Outpatient (CLI) | payer MEDICARE, SELFPAY ==
[2023-01-07 14:05] VITALS: BMI 29.8
[2023-07-23 16:35] LABS: Appearance Urine UA CLEAR; Bilirubin Urine UA NEGATIVE (NEGATIVE); Color Urine UA YELLOW; Glucose Urine UA NEGATIVE (Negative); Ketones Urine UA NEGATIVE (NEGATIVE); Leukocyte Esterase Urine UA NEGATIVE (NEGATIVE); Nitrite Urine UA NEGATIVE (Negative); Occult Blood Urine UA NEGATIVE (Negative); Protein Urine UA NEGATIVE (Negative); Urobilinogen Urine UA 0.2 E.U./dL (0.2)
[2023-07-23 16:36] LABS: pH Urine UA 5.5 (4.5-8.0)
[2023-07-23 16:39] LABS: Add Manual Diff / Slide Review NO; Basophils Absolute Auto 100 /uL (0-100); Basophils Percent Auto 0.8 % (0-2); Eosinophils Absolute Auto 200 /uL (0-450); Eosinophils Percent Auto 2.8 % (2-4); Hematocrit 36.6 % (36-46); Hemoglobin 12.6 g/dL (12.0-16.0); Lymphocytes Absolute Auto 1500 /uL (1100-4500); Lymphocytes Percent Auto 23.8 % (25-40); Mean Corpuscular HGB Conc 34.4 % (30-36); Mean Corpuscular Hemoglobin 28.1 PG (26-34); Mean Corpuscular Volume 81.7 fL (80-100); Monocytes Absolute Auto 800 /uL (0-900); Monocytes Percent Auto 12.3 % (3-14); Neutrophils Absolute Auto 3800 /uL (1500-7000); Neutrophils Percent Auto 60.3 % (50-75); Platelet Count 321 X10^3/uL (150-400); Red Blood Cell Count 4.48 X10^6/uL (4.0-5.2); Red Cell Distribution Width 15.4 % (11.6-14.8); White Blood Cell Count 6.3 X10^3/uL (4.5-11.0)
[2023-07-23 16:50] LABS: Bacteria Urine None Seen; Culture Indicated Urine Cult Not Indicated; RBC Urine None Seen (0-5/HPF); Squamous Epithelial Cell Urine 0-1 /HPF (0-5/HPF); Urine Volume 10mL (spun); WBC Urine None Seen (0-5/HPF)
[2023-07-23 16:53] LABS: BUN Creatinine Ratio 22.5 (6-22); Blood Urea Nitrogen 18 mg/dL (7-17); Carbon Dioxide 28 mmol/L (22-32); Chloride 102 mmol/L (98-107); Estimated Glomerular Filt Rate > 60 mL/min (>60); Glucose 97 mg/dL (80-110); HEMOLYSIS < 15 (0-50); Potassium 4.1 mmol/L (3.4-5.1); Sodium 135 mmol/L (137-145)
[2023-07-23 17:36] LABS: Hemoglobin A1C% w Est Avg Glu 4.9 % (4.0-6.0)
== END ==
PROVIDERS: PCP Registered Nurse; Referring Provider Orthopaedic Surgery; Visit Provider Orthopaedic Surgery
DX: Z01.818 Encounter for other preprocedural examination (principal); R73.9 Hyperglycemia, unspecified; Z01.812 Encounter for preprocedural laboratory examination; N39.0 Urinary tract infection, site not specified
CPT/HCPCS: 80048; 81001; 83036; 85025; 93005

== ENCOUNTER 2023-09-09 11:50 | Day surgery (SDC) | payer MEDICARE, SELFPAY ==
[2023-01-07 14:05] VITALS: BMI 29.8
[2023-09-08 11:58] VITALS: BMI 30.8
[2023-09-09] VITALS (13 sets, daily range): BP systolic 116–146; BP diastolic 51–80; PULSE 69–86; RESP 12–20; TEMP 36.2–36.6; O2SAT 92–100; BMI 31.1
--- NOTE | 2023-09-09 06:00 | DI.RAD.S_ITS ---
PROCEDURE: XR KNEE RT 1TO2V INDICATIONS: tka TECHNIQUE: 2 view(s) of the knee acquired. COMPARISON: None. FINDINGS: Bones: Patient is status post knee joint arthroplasty. Hardware components are in expected positions. Visualized bony structures are intact. Soft tissues: Overlying postoperative changes are noted. IMPRESSION: Expected post-operative appearance of a knee arthroplasty. Approved by: Renée Pablo M.D.,Ph.D. on 09/09/2023 at 18:27
[2023-09-09] MEDS: LACTATED RINGERS 1,000 ML 42 ML IV ×2 (12:10→16:11)
[2023-09-09] MEDS: CELECOXIB 200 MG CAPSULE 400 MG PO (12:55)
[2023-09-09] MEDS: VANCOMYCIN 1,000 MG/200 ML PIGGYBACK 200 MG IV (14:08)
--- NOTE | 2023-09-09 14:41 | P.OP_ITS ---
Operative Date/Time/Diagnoses Date of procedure: 09/09/23 Time of procedure: 15:00 Pre-op diagnosis: Severe right knee OA history of tibial plateau fracture Post-op diagnosis: same Procedure & Clinicians Procedure: Right total knee arthroplasty Same procedure as scheduled: Yes Indications: The patient has had progressively worsening right knee pain with radiographic changes consistent with arthritis. Non-operative management has failed and the patient has requested total knee replacement. The risks, benefits and alternatives to surgery were discussed with the patient prior to proceeding. Risks discussed included, but were not limited to, failure to relieve pain, stiffness, infection, nerve damage, deep venous thrombosis, pulmonary embolism, stroke, coma, heart attack, permanent paralysis and , as well as the potential need for eventual revision of the prosthetic. Surgeon: Malika Lopez Car Sales Associate: Daniel Carbone Anesthesia Type: General Operative Notes Findings: Severe right knee OA, adequate bone, adequate stability, severe synovitis throughout the knee most consistent with an inflammatory arthritis Closure Type: primary Specimen(s): none sent Prosthetic devices, grafts, tissues, transplants, or devices: John in the neph journey BCS 2 size 5 femur, size 4 tibia, size 12 x 100 Meeta stem, +9 poly, 32 x 7-1/2 mm patella Estimated Blood Loss (mL): 250 Blood products transfused: none Tourniquet time (min): 97 Procedure in detail: The patient was seen in the pre-operative area, where the patient identified the right knee as the operative site and this was marked with my initials. The patient received pre-operative antibiotics, and was taken to the operating room and placed on the operative table in the supine position. After satisfactory anesthesia, a multimedia authoring specialist out was performed. The right leg was encircled with a tourniquet about the proximal thigh, and the leg was prepared from the toes to the tourniquet with ChloroPrep in the usual fashion and draped through sterile drapes. The leg was elevated and exsanguinated with Eschmark bandage and the tourniquet inflated to [250] mmHg pressure. A PA was used during the procedure and was essential for intraoperative retraction and safe implantation of the components. The knee was approached through an approximately 18 cm incision centered over the patella and carried into the knee through a medial parapatellar arthrotomy. There was severe synovitis throughout the knee and it looked more like an inflammatory arthritis. Fairly extensive synovectomy was done in the suprapatellar pouch and both lateral gutters. Portion of the medial and lateral meniscus was resected. Soft tissue was carefully mobilized around the patella the patella was measured with a caliper. Bone was resected from the patella and the patellar height was reconstituted with up an appropriate sized patellar component. A cover was then placed on the patella. A small amount of additional medial and lateral meniscus was resected. CORI pins were placed in the femur and the tibial guide was placed and pinned to the tibia for navigation. A plan was carefully taken and further developed. The knee was placed through a range of motion including stressed and non stressed range of motion. It was balanced to about 1 mm of gap throughout range of motion and to neutral alignment. The distal femoral cut was made with a robotic assisted bur.. It looked like an appropriate distal femoral cut and the cut was made without difficulty. The rotation was assessed and the appropriate size femoral guide was placed on the distal femur and finishing cuts were made. There was no evidence of notching. The anterior, posterior and chamfer cuts were then made. The posterior osteophytes and soft tissues were then removed. The posterior capsule was injected with part of a mixture of 60 ml 0.25% Marcaine mixed with 20 ml Exparel for post operative pain control. The remainder of this mixture was injected into the capsule and subcutaneous tissues during cement curing. The tibia was carefully navigated in order to optimize the tibial cut. The guide was adjusted and pinned. The tibial cut appeared appropriate. The ro tation was assessed. The patient was placed in extension residual medial and lateral meniscus as well as any residual bone was carefully resected. [No] additional tibia was resected. Hemostasis was achieved especially posteriorly. Additional local was injected into the posterior capsule. The extension gap was assessed and it appeared appropriate. The femoral component was trial was placed and the notch was finished. Trial tibial and femoral components were then placed and the knee placed through a range of motion. Range of motion was [0- 130], with good stability throughout the range. The trials were then removed, and the tibia was finished. Patient had a history of a prior tibial plateau fracture there was some abnormality in the pattie tibia and it was opted to use a stem extension in order to further supplement tibial fixation. It was reamed up to an 11 Reamer through the guide and then free hand reamed with a 12 Reamer implanting a 12 mm stem. The bone was prepared with pulsatile lavage, and dried with a sponge. Cement was applied and the final prosthetics placed. Excess cement was removed during and after cement curing. A brief Betadine soak was performed. After confirming there was no extruded cement posteriorly, the final tibial insert was placed. The knee was copiously irrigated and the tourniquet deflated. Hemostasis was obtained with the Bovie cautery. The capsule was closed with interrupted # 1 Vicryl. The subcutaneous layer was closed with barbed sutures, and the skin with a running 3-0 V-Lock suture and Surgical glue. An Aquacel Ag dressing was applied and the patient was taken to recovery having tolerated the procedure well. Complications: none Post-operative Condition: stable Disposition: Acute Care Plan for aftercare: The patient will be maintained on a standard total knee replacement protocol with weight bearing as tolerated. The patient will receive aspirin and sequential compression devices for DVT prophylaxis. The patient will be discharged home when safe for the home environment.
--- NOTE | 2023-09-09 14:41 | PM.PREOP ---
Pre-operative Note Interval Note History & Physical reviewed/Exam performed by Physician: Yes Changes to H&P: No
[2023-09-09] MEDS: CEFAZOLIN 2 GM/100 ML PREMIX 100 ML IV ×2 (15:05→23:49)
[2023-09-09] MEDS: TRANEXAMIC ACID 1,000 MG VIAL 1000 MG INJ ×2 (15:09→17:02)
--- NOTE | 2023-09-09 15:34 | SUR.OPER ---
Supine on padded OR bed. Pillow under head, arms secured on padded armboards <90 degree abduction. Safety belt across torso. Non-operative leg secured with tape over blanket over lower leg. Operative leg secured in DeMayo positioner. Foam padded brace at thigh of operative leg.
[2023-09-09] MEDS: BUPIVACAINE LIPOSOME 266 MG/20 ML VIAL INJ (15:44)
[2023-09-09] MEDS: BUPIVACAINE 0.25% (PF) 60 ML, EPINEPHrine 0.3 MG INJ (15:45)
[2023-09-09] MEDS: ACETAMINOPHEN 325 MG TABLET 975 MG PO (18:16)
[2023-09-09] MEDS: OXYCODONE IR 5 MG TABLET PO ×2 (18:16→21:24)
[2023-09-09] MEDS: LACTATED RINGERS 1,000 ML 100 ML IV (19:02)
[2023-09-09] MEDS: DOCUSATE 100 MG CAPSULE PO (20:22)
[2023-09-09] MEDS: ASPIRIN EC 81 MG TABLET PO (20:22)
[2023-09-09] MEDS: IBUPROFEN 400 MG TABLET PO (20:22)
[2023-09-10] MEDS: ACETAMINOPHEN 325 MG TABLET 650 MG PO ×2 (00:45→08:22)
[2023-09-10] MEDS: OXYCODONE IR 5 MG TABLET PO ×3 (00:46→08:48)
[2023-09-10] MEDS: LACTATED RINGERS 1,000 ML 100 ML IV (04:21)
[2023-09-10 05:59] LABS: Hematocrit 30.8 % (36-46); Hemoglobin 10.8 g/dL (12.0-16.0)
[2023-09-10 06:00] VITALS: BP 98/57; PULSE 70; RESP 16; TEMP 36.1; O2SAT 98
[2023-09-10] MEDS: CEFAZOLIN 2 GM/100 ML PREMIX 100 ML IV (06:41)
--- NOTE | 2023-09-10 06:51 | P.DS_ITS ---
History of Present Illness History of Present Illness Date Patient Seen: 09/10/23 Time Patient Seen: 06:52 Chief complaint: right TKA Narrative: Operative Date/Time/Diagnoses Date of procedure: 09/09/23 Time of procedure: 15:00 Pre-op diagnosis: Severe right knee OA history of tibial plateau fracture Post-op diagnosis: same Procedure & Clinicians Procedure: Right total knee arthroplasty Same procedure as scheduled: Yes Indications: The patient has had progressively worsening right knee pain with radiographic changes consistent with arthritis. Non-operative management has failed and the patient has requested total knee replacement. The risks, benefits and alternatives to surgery were discussed with the patient prior to proceeding. Risks discussed included, but were not limited to, failure to relieve pain, stiffness, infection, nerve damage, deep venous thrombosis, pulmonary embolism, stroke, coma, heart attack, permanent paralysis and , as well as the potential need for eventual revision of the prosthetic. Surgeon: Malika Lopez Bilingual Customer Service: Daniel Carbone Anesthesia Type: General Operative Notes Findings: Severe right knee OA, adequate bone, adequate stability, severe synovitis throughout the knee most consistent with an inflammatory arthritis Closure Type: primary Specimen(s): none sent Prosthetic devices, grafts, tissues, transplants, or devices: Lopez in the neph journey BCS 2 size 5 femur, size 4 tibia, size 12 x 100 Meeta stem, +9 poly, 32 x 7-1/2 mm patella Estimated Blood Loss (mL): 250 Blood products transfused: none Tourniquet time (min): 97 Discharge Providers Provider Date of admission: 09/09/23 17:49 Discharge Date: 09/10/23 Primary care physician: NANCY Davis Consults: 09/09/23 06:00 Consult to Anesthesiology Routine Comment: Consulting Provider: Anesthesiologist Reason for consultation: Regional block for post operative pain control 09/09/23 18:49 Consult to Discharge Planning Routine Comment: Consult to Occupational Therapy Evaluate & Treat Comment: Physician Instructions: Evaluate and treat Consult to Physical Therapy Evaluate & Treat Comment: Physician Instructions: postop TKA protocol Discharge provider: Hortencia Calabrese PA-C Summary Hospital Course Discharge Diagnosis: Right knee osteoarthritis, s/p right total knee arthroplasty Hospital Course: Ms Paul's hospital course was unremarkable. On the morning of POD# 1, she was feeling well and wanted to go home. She had not yet been evaluated by PT, but had been OOB several times to urinate. She was voiding and eating without difficulty, and her pain was well-controlled w/ oral medication. Exam Vital Signs (past 8 hours): - 09/10/23 06:00 Temperature 97.0 F L Pulse Rate 70 Respiratory Rate 16 Blood Pressure 98/57 L Pulse Oximetry 98 Oxygen Flow Rate 0 Oxygen Delivery Method Room Air Oxygen Flow Rate 0 Narrative Exam Narrative: 5/5 strength in hip flexors, quadriceps, hamstrings, DF, PF, EHL on right. Sensation to light touch intact throughout RLE, calf soft and compressible. Per RN, Dr Lopez had just been in and asked for Aquacel dressing to be changed; incision is currently CDI and without discharge. 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 Pt has d/c pain meds. Outpt PT, f/u in office as scheduled. Per pt, Dr Lopez would like her to see a production checker. She says this referral was started by her PCP, but she does not remember the name of the physician/group to whom she was referred. She can provide the name to our office if she needs another referral. Discharge Plan Discharge Plan Patient Disposition: Home Discharge orders & Medications Prescriptions: Continued acyclovir 400 mg tablet 400 mg PO BID PRN (Reason: herpes) acetaminophen 500 mg Tablet 1,000 mg PO Q6H PRN (Reason: Pain (Scale Score 1-3)) celecoxib [Celebrex] 200 mg Capsule 200 mg PO DAILY estradiol 0.01 % (0.1 mg/gram) cream 0.5 g VAGINAL 2XW Follow up/Referrals: Verónica Subramanian FNP-Izabel [Primary Care Provider] - Malika Lopez MD [Physician] - As previously scheduled Diet/Activity/Treatments Diet: Diet as Tolerated Activity: Walk frequently! Cold/Heat Therapy: Ice to knee as needed for pain. Skin/Wound/Dressing Care Report to your healthcare provider any signs of infection, such as:: chills, fever, night sweats, unusual drainage and unusual redness Dressing: May shower. Leave dressing in place until follow up in office. No bathing or otherwise soaking incision. If dressing becomes saturated inside, may remove and replace. Visit Report/Discharge Packet Instructions: DI for Knee Replacement, DI for Prescription Opioid Use Stand Alone Forms: Patient Portal/API, Stroke Signs & Symptoms, Surgery Discharge Discharge Data Primary Care Provider: Verónica Subramanian Quality VTE Deep Vein Thrombosis/Pulmonary Embolism Present on Admission: No
[2023-09-10 08:00] VITALS: BP 101/54; PULSE 71; RESP 16; TEMP 36.3; O2SAT 98
[2023-09-10] MEDS: DOCUSATE 100 MG CAPSULE PO (08:22)
[2023-09-10] MEDS: CELECOXIB 200 MG CAPSULE PO (08:22)
[2023-09-10] MEDS: ASPIRIN EC 81 MG TABLET PO (08:22)
--- NOTE | 2023-09-10 09:00 | PT.IIE ---
Current Diagnoses Unilateral primary osteoarthritis, right knee (09/09/23) Surgery Performed Operation Date: 09/09/23 13:45 Actual Procedures p Total Knee Arthroplasty - Robot(Right) - Malika Lopez MD Surgical History (Last Updated 09/08/23 @ 12:12 by Le Viramontes, RN) History of 3 sections History of arthroscopic knee surgery History of eye surgery History of lumpectomy of left breast History of total left hip replacement (01/07/23) History of tubal ligation Hx of cholecystectomy Hx of vein stripping Medical History (Last Updated 09/08/23 @ 12:09 by Le Viramontes, RN) Depression DJD (degenerative joint disease) History of COVID-19 (05/2023) Hyperlipidemia Physical Therapy Inpatient Evaluation/Re-Eval M1 PT/OT-IP Prior Functional Status Start: 09/10/23 11:25 Freq: NEEDED Status: Discharge Protocol: Document 09/10/23 11:29 [facility] (Rec: 09/10/23 11:57 [facility] [id number]) Medical Review Prior Functional Status Communication Independent Activities of Daily Living and IADL's Pt had pain during ADl and IADL needs but able to do. Social History Household Members spouse Living Arrangements House Number of Stairs To Enter/Railing? 3 steps with bilateral rail, based on infromation for last surgery on 01/27 Home Equipment Front Wheel Walker,Four Wheel Walker,Straight Cane,Raised Toilet Seat w/Armrests,Hand Held Shower,Long Handled Shoe Horn,Military Professional,Sock Aid,Grab Bars In Shower Additional Social History Comment Pt has a supportive to assist. M1 PT/OT-IP Prior Functional Status Start: 09/10/23 12:17 Freq: NEEDED Status: Active Protocol: Document 09/10/23 09:00 AB (Rec: 09/10/23 12:34 AB [id number]) Medical Review Prior Functional Status Medical History Reviewed Yes Communication able to make needs known Mobility and Gait pt stated that she was indpenednet with all mobilities and ambulation using a SPC Activities of Daily Living and IADL's per OT note: Pt had pain during ADl and IADL needs but able to do. Social History Household Members spouse Living Arrangements House Number of Floors (Floors) One Floor Number of Stairs To Enter/Railing? pt will be staying at their guest house and has 3 steps to enter with B rails Home Environment Standard Height Toilet,Walk in Shower Home Equipment Front Wheel Walker,Four Wheel Walker,Straight Cane,Raised Toilet Seat w/Armrests,Shower Seat with Backrest,Hand Held Shower,Long Handled Shoe Horn, Military Professional,Sock Aid,Grab Bars In Shower M2 PT-IP Current Condition Start: 09/10/23 12:17 Freq: NEEDED Status: Active Protocol: Document 09/10/23 09:00 AB (Rec: 09/10/23 12:34 [id number]) Physical Therapy Current Condition Current Condition Evaluation Date 09/10/23 Treatment Diagnosis s/p R TKA; difficulty in walking Onset Date 09/09/23 M3 PT-IP Subjective Start: 09/10/23 12:17 Freq: NEEDED Status: Active Protocol: Document 09/10/23 09:00 AB (Rec: 09/10/23 12:34 [id number]) Subjective Physical Therapy Visit Type Type Initial Evaluation Visit Start Time 09:00 Visit Stop Time 10:35 Notes pt seen for split visits: 900 to 948 am annd 1010 to 1035am Number of SYSTEMS ENG Visits 0 Physical Therapy Visit Comments Patient Comments agreeable to do PT Therapy Pain Assessment Pain When Pain Assessed At Rest Pain Present Pain Present Pain Reported Location Right Knee Intensity 2 Scale Used increases to 6/10 with movement Pain Management Techniques Apply Cold,Distraction, Modification of Treatment,Re- positioning,Timing of Activity with Medications M4 PT-IP Mobility and Gait Start: 09/10/23 12:17 Freq: NEEDED Status: Active Protocol: Document 09/10/23 09:00 AB (Rec: 09/10/23 12:34 [id number]) PT-Bed Mobility Assessment Supine to Sit Supine to Sit Standby Assistance PT-Transfer Assessment Sit to and From Stand Sit to and from Stand Contact Guard Assistance, Minimal Assistance,1 Person Assistance,Use of Upper Extremities Equipment Transfer Assistive Device Gait Belt,Front Wheeled Walker Orthotic/Prosthetic Devices or Brace: No Transfers Transfer Destination Bed,Chair Transfer Technique ambulated Transfer Ability Level of Assist Standby Assistance,1 Person Assistance,Use of Upper Extremities Comments Mobility Comments pt sitting on the chair. pt agreeable to do PT. obtained PLOF and home set up from pt. post-op folder provided and reviewed contents. educated pt on HEP. pt completed seated heel slide and knee flexion stretching. pt completed sit to stand from chair min A and max cues. pt with heavy UE use on chair to get up. educated pt on sit <> stand techniques. pt completed again CGA to min A. pt ambulated in room using FWW ~ 30 ft SBA to CGA. pt sat on the EOB. pt completed sit< >supine SBA. spouse arrived. pt completed sit to stand from EOB CGA and step transfer to chair using FWW SBA. caregiver training initiated and educated spouse on how to use safety belt and how to assist pt. spouse was able to put safety belt on pt and assisted pt with sit to stand. pt requested to use the toilet. pt ambulated to the toilet using FWW CGA with sposue assisting. pt needing to use the toilet for awhile. left pt with spouse. checked back on pt and pt sitting on the chair. spouse in room. pt agreed to do stairs. spouse assisted pt with sit to stand CGA to min A and ambulation using FWW ~ 150ft SBA to CGA. pt completed stair climbing using B rails mod A and max cues. pt with limited R hip and knee flexion and tends to circumduct RLE to clear and lift LE up steps. pt stated that her L knee is also needing surgery but also has R hip arthritis. pt completed up/down steps x 2 sets and spouse was able to assist. assist pt back to her room. sit to stand from w/c min A with heavy UE use. pt ambulated to the chair using FWW SBA. educated pt again on sit<>stand techniques. completed x 2 reps CGA and max cues. left pt with OT and spouse. pt and spouse without further concerns. Gait Assessment Gait Gait Assistance Required: Standby Assistance,Contact Guard Assist Distance (Feet) 150 Able to Maintain Weight Bearing Status Yes During Gait Assistive Devices Assistive Device Gait Belt,Front Wheeled Walker Orthotic/Prosthetic Devices or Brace: No Gait Deviations General Gait Pattern Antalgic,Decreased Stride Length,Decreased Feet Clearance,Lateral Trunk Lean, Step-to Gait Factors Limiting Gait Function Factors Limiting Gait Function Decreased Activity Tolerance, Decreased Strength,Limited Range of Motion,Pain,Poor Balance Stair Climbing Assessment Evaluation Level of Assist On Stairs Moderate Assistance,1 Person Assistance Devices Stair Climbing Assistive Devices Left Railing,Right Railing Technique/Endurance Stair Climbing Direction Ascend and Descend Stair Climbing Technique Step to Step Number of Steps Climbed 3 Query Text: Stair Climbing Set # Repetitions (reps) 2 PT-Balance Assessment Sitting Balance and Reactions Static Sitting Balance Ability Normal Dynamic Sitting Balance Ability Good Standing Balance and Reactions Static Standing Balance Ability Fair Dynamic Standing Balance Ability Fair Device Used FWW M5 PT-IP Objective Assessments Start: 09/10/23 12:17 Freq: NEEDED Status: Active Protocol: Document 09/10/23 09:00 AB (Rec: 09/10/23 12:34 [id number]) Orientation Orientation/Cognition Level of Alertness Alert Orientation Name,Place,Situation Language Function Ability No Deficits Noted Safety Awareness Decreased Safety Awareness Memory Description No Deficits Noted Gross Range of Motion Lower Extremity ROM Assessment Right Impaired Impairments R knee flexion: ~ 70 deg R knee extension: ~ 10 deg less to 0 Strength Lower Extremity Strength Assessment Right Impaired Hip 3+/5 Knee 4-/5 Muscle Tone Muscle Tone WNL Yes M6 PT-IP Treatment Start: 09/10/23 12:17 Freq: NEEDED Status: Active Protocol: Document 09/10/23 09:00 AB (Rec: 09/10/23 12:34 [id number]) Physical Therapy Treatment Exercises Exercises Heel Slides,Seated Knee Flexion/Extension Education Education Provided Precautions,Weight Bearing Status,Post-Op Packet,Safety M7 PT-IP Assessment and Plan Start: 09/10/23 12:17 Freq: NEEDED Status: Active Protocol: Document 09/10/23 09:00 AB (Rec: 09/10/23 12:34 [id number]) PT Summary Assessment and Plan Potential Rehabilitation Potential Good Status of Condition at Evaluation Stable Summary Impairments Pain,ROM,Strength,Balance, Coordination,Sensation,Tone, Cognition,Bed Mobility, Transfers,Gait,Activity Tolerance Assessment Summary pt is a 68 y/o F s/p R TKA POD 1. pt requiring SBA to min A with mobility using FWW and will have his spouse to assist her. caregiver training conducted and spouse was able to assist pt safely. pt may go home when medically stable. Goals Bed Mobility Goal Independent Transfer Goal Independent,Front Wheeled Walker Gait Goal Independent,Front Wheel Walker Gait Distance 300 Other Goals up/down 3 steps B rails mod I Days to Meet Goals 5 Frequency of Treatment Frequency Of Treatment Twice a Day Treatment Plan Physical Therapy Treatment Plan Bed Mobility Training,Transfer Training,Gait Training, Therapeutic Exercise,Balance Retraining,Post Op Education, Discharge Planning,Hot or Cold Pack,Neuromuscular Re-ed, Coordination Retraining,Manual Therapy Weight Bearing Status Weight Bearing Status Weight Bear as Tolerated Allowed Weight Bearing Amount (enter % RLE WBAT or #) (%) Recommendations To Nursing Amount of Assist Needed 1 Person Assist Discharge Recommendations PT Discharge Recommendations Home with Assistance, Outpatient PT Transportation Needs at Discharge Private Vehicle
--- NOTE | 2023-09-10 09:17 | CM.DANOTE ---
Initial DCP Assessment Visit Note Reviewed EMR and team rounds for pt's medical status and anticipated home d/c needs. Met with pt at bedside to introduce self and role, pt was found sitting upright in the recliner, smiling and appearing comfortable. She resides independently with her spouse in their own home in [place], her spouse will be arriving at 10:00am this morning in order to do cg training with PT, after which he will transport her home. Payor: Medicare Attending: Dr. Malika Lopez Pt is a 68 year-old F post-op day 1 from a R-total knee arthroplasty surgery. He has a past hx of hip replacement in 2022. Pt reports that she has had progressively worsening pain in her right knee, which has prevented her from her normal activity/ADL's, and conservative measures for pain relief have not been successful. Today she is expressing feeling she has good pain control, is ambulating well with PT, and is ready to discharge home. 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 Will continue to monitor for any further evolving needs prior to her d/c later this morning. Discharge Planning/Care Management CM Discharge Assessment Start: 09/10/23 09:16 Freq: Status: Active Protocol: Document 09/10/23 09:16 DPL (Rec: 09/10/23 09:17 DPL [id number]) Discharge Planning Assessment Assigned Type Proof Reproducer PRAMOD Brian Advance Directives? Yes: pol Advance Directives on File Yes History Provided By Patient,Medical Record Has Patient been admitted in last 30 No days? Prior Living Arrangements House Household Members spouse Type of transporation used prior to Drives own vehicle admit Independent with ADL's Yes Is patient alert and oriented? Yes Comment N/A Community Services used prior to Physical Therapy admission: DME Already Rented / Owned FWW / Walker Patient/Family Preference OP PT Therapy Barriers to Discharge No Discharge Plan Home Community Services Physical Therapy Transportation Arrangement Spouse Referrals Initiated None needed Whiteboard Updated in Patient Room with Yes name and ext. # of Type Proof Reproducer Review Status In Process Please Provide Date Initial DC 09/10/23 Assessment Was Performed Pre-Anesthesia Assessment Start: 09/08/23 11:58 Freq: Status: Active Protocol: Document 09/08/23 11:58 CAB (Rec: 09/08/23 12:23 CAB [id number]) Pre-Anesthesia Assessment Preferred Name Francoise Patient Information Reviewed Via Phone Assessment Assessment Completed With Patient Diagnostic Results BMP/CMP,CBC,EKG Comment Labs/EKG done @ 07/23/23 Primary Care Provider Verónica Subramanian Seen Specialist in Last 12 Months Yes Specialist Seen General surgeon,Orthopedist Primary Language [place] Preferred Language [place] Precipitator Supervisor Required No Height 164.47 cm Weight 83.461 kg Body Mass Index (BMI) 30.8 Hearing Ability Normal Visual Impairment Partially Limited Visual Assist Glasses Dentition Type Teeth, Natural Present Barriers to Learning None Other Aids No Hx Anesthesia Reactions No Hx Family Anesthesia Reaction No Hx Malignant Hyperthermia No Hx Blood Transfusions No Hx Blood Transfusion Reaction No Anesthesia Review Requested No Manager Heart No alcohol intake current alcohol intake frequency 0-2 drinks per day Smoking Status Never smoker Substance Use Type does not use Pain Present Pain Reported Musculoskeletal Symptoms Abnormal Gait,Difficulty Walking,Joint Pain History of Falling (Recent or History of No ) Patient is completely paralyzed or No completely immobile Prosthesis or Orthotic Device Cane Mental Status Oriented to own ability Is patient on oxygen? No Does patient have DASILVA/SOB No Hx Sleep Apnea No CPAP/BIPAP use not prescribed Currently Taking a Beta Eren No Can You Climb a Flight of Stairs Without Yes SOB Hx Chest Pain No Hx SOB No Hx Syncope or Dizziness No Anti-Coagulant Therapy No Has a Information Technology Security Analyst No Cardiac Testing No Hx Pacemaker/ICD No Pacemaker Rep Required? No Cardiac Clearance Received Not Applicable Diet Type At Home Regular Dysphagia No Chronic UTI Yes Urinary Catheter Present No Hx Urinary Self Catheterization No Diabetes No HgbA1C 4.9 Date 07/23/23 Patient No Lactating No Hx Drug Resistant Organism No Presence of External or Internal Medical No Devices Received a COVID vaccine? Yes: x3 booster Received all doses? Yes Marital Status Lives With spouse Current Living Arrangements House Number of Floors (Floors) 3 or More Floors Number of Stairs To Enter/Railing? 3 Support System Spouse Does the Patient Have Assistance After Yes Surgery Patient Discharge Plan Description Return Home Comment Pt advised overnight length of stay per surgeon Feels Safe in Current Environment Yes Been Physically Hurt or Threatened By a No Person in Current Environment Do you have thoughts of harming yourself None or others? Are you currently considering suicide? No Do you have a plan to hurt yourself or No Plan others? Do You Have Any Spiritual Beliefs That No May Affect Your HC Choices? Do You Have Any Cultural Practices That No May Affect Your HC Choices? Who Can We Speak to About Patient's Care Family, friends Identifying Code for Release of Patient Declines to issue Information Health Care Proxy/Next of Kin Miguel Paul (spouse) Health Care Proxy Emergency Contact Name Miguel Paul (spouse) Emergency Contact Advance Directives? Yes Advance Directives on File Yes Power of Padded Products Finisher Yes Power of Padded Products Finisher Name Miguel Paul Power of Padded Products Finisher PAC Instructions Assistance for 24 hours post- op,Do not shave/clip surgical site,Durable medical equipment ,Medications to take/avoid, Nasal antibiotic,No ETOH/ petroleum product on skin DOS, NPO,Post-op transportation,Pre -surgical wash,Sensory aids, Sturdy shoes/comfortable clothes,Do not bring valuables and remove jewelry Stop Bang Assessment Do you snore loudly (louder than talking No or loud enough to be heard through closed doors) Do you often feel tired, fatigued or No sleepy during the daytime Has anyone ever observed you stop No breathing while sleeping? Do you have, or are you being treated No for, high blood pressure Is your BMI more than 35 kg/m2 No Age over 50 Yes Estimated neck circumference greater No than 40cm or 16in Gender male No Result Negative
--- NOTE | 2023-09-10 10:45 | OT.IP.EVAL ---
Current Diagnoses Unilateral primary osteoarthritis, right knee (09/09/23) Surgery Performed Operation Date: 09/09/23 13:45 Actual Procedures p Total Knee Arthroplasty - Robot(Right) - Malika Lopez MD Past Medical History (Last Updated 09/08/23 @ 12:09 by Le Viramontes, RN) Depression DJD (degenerative joint disease) History of COVID-19 (05/2023) Hyperlipidemia Surgical History (Last Updated 09/08/23 @ 12:12 by Le Viramontes RN) History of 3 sections History of arthroscopic knee surgery History of eye surgery History of lumpectomy of left breast History of total left hip replacement (01/07/23) History of tubal ligation Hx of cholecystectomy Hx of vein stripping Occupational Therapy Inpatient Evaluation/Re-Eval M1 PT/OT-IP Prior Functional Status Start: 09/10/23 11:25 Freq: NEEDED Status: Discharge Protocol: Document 09/10/23 11:29 [facility] (Rec: 09/10/23 11:57 [facility] [id number]) Medical Review Prior Functional Status Communication Independent Activities of Daily Living and IADL's Pt had pain during ADl and IADL needs but able to do. Social History Household Members spouse Living Arrangements House Number of Stairs To Enter/Railing? 3 steps with bilateral rail, based on information for last surgery on 01/27, please see PT eval. Home Equipment Front Wheel Walker,Four Wheel Walker,Straight Cane,Raised Toilet Seat w/Armrests,Hand Held Shower,Long Handled Shoe Horn,Golf Club Weighter,Sock Aid,Grab Bars In Shower Additional Social History Comment Pt has a supportive to assist. M2 OT-IP Current Condition Start: 09/10/23 11:25 Freq: Status: Discharge Protocol: Document 09/10/23 11:29 [facility] (Rec: 09/10/23 11:57 [facility] [id number]) Occupational Therapy Current Condition Current Condition Evaluation Date 09/10/23 Treatment Diagnosis S/P R TKA Diagnosis Onset Date 09/09/23 M3 OT- IP Subjective and Pain Start: 09/10/23 11:25 Freq: Status: Discharge Protocol: Document 09/10/23 11:29 [facility] (Rec: 09/10/23 11:57 [facility] [id number]) OT- Subjective Occupational Therapy Visit Type Type Initial Evaluation Visit Start Time 10:20 Visit Stop Time 10:45 Occupational Therapy Visit Comments Patient Comments Pt agreed to get dressed. Patient/Caregiver Goals TO go home. OT Pain Assessment Pain When Pain Assessed At Rest Pain Present Pain Present Pain Reported M4 OT- IP ADL's Start: 09/10/23 11:25 Freq: Status: Discharge Protocol: Document 09/10/23 11:29 [facility] (Rec: 09/10/23 11:57 [facility] [id number]) OT FGG-Twob-Inflcuo General Evaluation Self-Feeding Ability Independent OT ADL-Grooming General Evaluation Grooming Ability Standby Assistance Comments OT Grooming Comments Pt able to do while standing at the sink with FWW. OT ADL-Oral Care General Eval Oral Care Ability Independent OT ADL-Dressing General Eval Upper Body Dressing Ability Independent Lower Body Dressing Ability Contact Guard Assistance Comments OT Dressing Comments Pt able to bend over to yao clothing over her feet. CGA while and pt able to pull up items over her hips. Educated to yao her RLE first and take out last. OT ADL-Toileting Comments OT Toileting Comments Pt not having to go. Suggested to limit water at night and wear pads as needed. Also for pt to be mindful of her LLE positioning during ADL needs and not to twist her knee. OT ADL-Bathing Comments OT Bathing Comments Educated of dressing needs while showering. M5 OT- IP IADL's Start: 09/10/23 11:25 Freq: Status: Discharge Protocol: Document 09/10/23 11:29 [facility] (Rec: 09/10/23 11:57 [facility] [id number]) OT-Instrumental Activities of Daily Living Deficits IADL Deficits Identified Deficits Home Safety Awareness Awareness of Need for Assistance at Home Good Awareness Ability to Problem Solve Emergency Able to Problem Solve Situations Medication Management Medication Management No Deficits Identified Money Management Money Management No Deficits Identified Meal Preparation Meal Preparation Caregiver Provides Assist Solar Tech Solar Tech Caregiver Provides Assist M6 OT- IP Functional Cognition Start: 09/10/23 11:25 Freq: Status: Discharge Protocol: Document 09/10/23 11:29 [facility] (Rec: 09/10/23 11:57 [facility] [id number]) Cognitive Factors Limiting Selfcare Function Cognitive Ability Level of Alertness Alert Patient Orientation Name,Age,Birthday,Month,Date, Year,Day of Week,Place, Situation Attention Span Ability Capable of Focused Attention, Capable of Sustained Attention Ability to Follow Commands Able to Follow Multi-Step Commands Cognitive Comments Cognitive Assessment Comments Pt intact. OT- Vision and Hearing OT- Hearing Assessment OT- Hearing Assessment WFL OT- Vision Assessment Visual Attentiveness WFL Occular Pursuits WFL M7 OT- IP Mobility and Balance Start: 09/10/23 11:25 Freq: Status: Discharge Protocol: Document 09/10/23 11:29 [facility] (Rec: 09/10/23 11:57 [facility] [id number]) OT-Transfer Assessment Sit to and From Stand Sit to and from Stand Standby Assistance,Contact Guard Assistance Transfers Transfer Ability Standby Assistance Technique Transfer Destination Chair Transfer Technique Stand Step Pivot Devices Transfer Assistive Devices None,Front Wheeled Walker Comments Mobility Comments VC to technique to come to stand and initially needing CGA to stand. After up on her feet was SBA. VC to keep the FWW in front of her while at the sink. OT- Balance Assessment Sitting Balance and Reactions Static Sitting Balance Ability Normal Dynamic Sitting Balance Ability Normal Standing Balance and Reactions Static Standing Balance Ability Normal Dynamic Standing Balance Ability Good M8 OT- IP Objective Assessments Start: 09/10/23 11:25 Freq: Status: Discharge Protocol: Document 09/10/23 11:29 [facility] (Rec: 09/10/23 11:57 [facility] [id number]) OT Gross Range of Motion Upper Extremity Range of Motion Assessment Within Functional Limits OT Strength Upper Extremity Strength Assessment Within Functional Limits M9 OT- IP Assessment and Plan Start: 09/10/23 11:25 Freq: Status: Discharge Protocol: Document 09/10/23 11:29 [facility] (Rec: 09/10/23 11:57 [facility] [id number]) OT Summary Assessment and Plan Potential Rehabilitation Potential Excellent Analytic Complexity at Evaluation Low Summary OT Impairments Pain,Balance,Functional Mobility,Dressing,Toileting, Bathing Progress Towards Goals Progressing Toward Goals Assessment Summary Pt low complexity and main barriers are pain and needing vc for coming to stand, vc to coordinate smooth movements to come to stand. Pt is doing very well and has a supportive to assist with her needs. Pt to have outpt PT. Goals Dressing Goal Independent Toileting Goal Independent Bathing Goal Independent Toilet Transfer Goal Independent Shower Transfer Goal Standby Assistance Days to Meet Goals 2 Frequency of Treatment Frequency Of Treatment Once a Day Treatment Plan OT Treatment Plan Discharge Planning Discharge Recommendations OT Discharge Recommendations Home with Assistance, Outpatient PT Transportation Needs at Discharge Private Vehicle
[2023-09-10 10:59] VITALS: PULSE 80; RESP 16; O2SAT 98
[2023-09-10] MEDS: IBUPROFEN 400 MG TABLET PO (11:18)
--- NOTE | 2023-09-10 11:36 | PC.NURSE ---
Dayshift: Pt discharged post-PT/OT consult. PIV d/c'ed. Provided pt with education re: TKR and opioid prescription. Answered all pt questions. All belongings returned to pt. Pt left via wheelchair with spouse and escorted by PCT Darryl.
== END 2023-09-10 11:30 | disposition home or self-care (01) ==
LOC: OR 11:51 → AC 09-10 06:56 → OR 09-10 13:20
PROVIDERS: PCP Registered Nurse; Referring Provider Orthopaedic Surgery; Visit Provider Orthopaedic Surgery
PROC: 0SRC0JZ Replacement of Right Knee Joint with Synthetic Substitute, Open Approach (ICD-10-PCS; CPT 27447; principal; 2023-09-09 13:45)
DX: M17.11 Unilateral primary osteoarthritis, right knee (principal); M25.761 Osteophyte, right knee
CPT/HCPCS: 27447; 36415; 73560; 85014; 85018; 97116; 97161; 97165; 97530; 97535; C1776; C9290; J0171; J0690; J1100; J2704; J3010

== ENCOUNTER → 2024-01-08 11:04 | Outpatient (CLI) | payer MEDICARE, SELFPAY ==
[2023-09-09 18:38] VITALS: BMI 31.1
--- NOTE | 2024-01-08 11:07 | EKG_ITS ---
[address] [address] Test Date: 2024-01-08 Pat Name: Rosio Paul Department: [facility] Room: Gender: Female Claim Auditor: JAYLYN : 1955 Requested By: Order Number: [id number] Reading MD: Miguel Pop MD Measurements Intervals [place] Rate: 77 P: 39 FL: 136 QRS: 13 QRSD: 94 T: 15 QT: 382 QTc: 432 Interpretive Statements Normal sinus rhythm Electronically Signed On 01-08-2024 12:05:48 PDT by Miguel Pop MD
[2024-01-08 11:36] LABS: Add Manual Diff / Slide Review NO; Basophils Absolute Auto 0 /uL (0-100); Basophils Percent Auto 0.6 % (0-2); Eosinophils Absolute Auto 100 /uL (0-450); Eosinophils Percent Auto 1.7 % (2-4); Hematocrit 38.7 % (36-46); Hemoglobin 13.6 g/dL (12.0-16.0); Lymphocytes Absolute Auto 600 /uL (1100-4500); Lymphocytes Percent Auto 9.3 % (25-40); Mean Corpuscular HGB Conc 35.1 % (30-36); Mean Corpuscular Hemoglobin 29.2 PG (26-34); Mean Corpuscular Volume 83.2 fL (80-100); Monocytes Absolute Auto 600 /uL (0-900); Monocytes Percent Auto 8.9 % (3-14); Neutrophils Absolute Auto 5000 /uL (1500-7000); Neutrophils Percent Auto 79.5 % (50-75); Platelet Count 255 X10^3/uL (150-400); Red Blood Cell Count 4.66 X10^6/uL (4.0-5.2); Red Cell Distribution Width 14.2 % (11.6-14.8); White Blood Cell Count 6.3 X10^3/uL (4.5-11.0)
[2024-01-08 11:52] LABS: Appearance Urine UA CLEAR; Bilirubin Urine UA NEGATIVE (NEGATIVE); Color Urine UA YELLOW; Glucose Urine UA NEGATIVE (Negative); Ketones Urine UA TRACE (NEGATIVE); Leukocyte Esterase Urine UA NEGATIVE (NEGATIVE); Nitrite Urine UA NEGATIVE (Negative); Occult Blood Urine UA NEGATIVE (Negative); Protein Urine UA NEGATIVE (Negative); Specific Gravity Urine UA 1.025 (1.000-1.035); Urobilinogen Urine UA 0.2 E.U./dL (0.2)
[2024-01-08 12:02] LABS: Bacteria Urine Occasional (0-1); Calcium Oxalate Crystals Urine Occasional; Culture Indicated Urine Cult Not Indicated; Mucus Urine 2+ (Negative); RBC Urine 1-5/HPF (0-5/HPF); Squamous Epithelial Cell Urine 1-5 /HPF (0-5/HPF); Urine Volume 10mL (spun); WBC Urine 1-5/HPF (0-5/HPF)
[2024-01-08 12:03] LABS: Hemoglobin A1C% w Est Avg Glu 4.7 % (4.0-6.0)
[2024-01-08 12:06] LABS: BUN Creatinine Ratio 27.9 (6-22); Blood Urea Nitrogen 19 mg/dL (7-17); Calcium 9.4 mg/dL (8.4-10.2); Carbon Dioxide 27 mmol/L (22-32); Chloride 101 mmol/L (98-107); Estimated Glomerular Filt Rate > 60 mL/min (>60); Glucose 98 mg/dL (80-110); HEMOLYSIS < 15 (0-50); Potassium 4.3 mmol/L (3.4-5.1); Sodium 134 mmol/L (137-145)
== END ==
LOC: RESP 11:05
PROVIDERS: PCP Registered Nurse; Referring Provider Orthopaedic Surgery; Visit Provider Orthopaedic Surgery
DX: Z01.818 Encounter for other preprocedural examination (principal); R73.9 Hyperglycemia, unspecified; Z01.812 Encounter for preprocedural laboratory examination; N39.0 Urinary tract infection, site not specified
CPT/HCPCS: 36415; 80048; 81001; 83036; 85025; 93005